=== PATIENT | male | born 1945 | race Caucasian/White ===

== ENCOUNTER → 2016-12-03 | Outpatient (CLI) | payer MEDICARE ==
--- NOTE | 2016-12-11 09:18 | SS ---
ADMIT: 12/03/2016 RM/LOC: [facility] MR#: [id number] [id number] JEEVANCHELSY [place] [address] Sleep Study SEX: M AGE: 71 : 1945 STUDY DATE: 12/03/2016 CLINICAL HISTORY: A 71-year-old male, body mass of 38.8, 68 inches tall, 255 pounds, known history of obstructive sleep apnea in the sleep lab for CPAP titration. TECHNICAL DESCRIPTION: CPAP titration performed on night of 12/03/2016, attended by a trained clinical laboratory technologist. TITRATION FINDINGS: TITRATION DESCRIPTION: The patient was titrated from 7 cm CPAP to 15 cm of CPAP. ResMed Mirage FX medium nasal mask was used. SLEEP: Total time bed is 425 minutes, total sleep time is 400.5 minutes, sleep efficiency 94.2%. 71.9% hours spent in stage II sleep, 19.8% hours spent in stage REM. BREATHING: Excellent resolution of obstructive sleep apnea was seen at CPAP 14 cm. The patient was seen in non-REM sleep in supine position. At 15 cm, there was emergence of central apneas, especially in REM sleep. At this time, 14 cm appears to be ideal for resolution of obstructive events. The patient was seen in non-REM sleep in supine position. REM supine sleep was not seen at this 14 cm ending pressure. OXYGEN SATURATION: Mean sleeping 92%. CARDIAC: Average heart rate is 71 beats per minute. MOVEMENTS/POSITION: During the study, the patient slept in supine lateral position with no significant leg movements. IMPRESSION: Recommend using CPAP at 14 cm with mask as mentioned above. Recommend losing weight, avoiding sedatives or alcohol. Refrain from driving if excessively sleepy. Clinical correlation needed. CPAP compliance followup is recommended. Clifton Dave MD/ marina MARTIN: 12/05/2016 15:02:08 JOB #: [id number] CC: Karan Howe MD, Attending Physician Karan Howe MD, Family Physician Karan Howe MD
== END | disposition home or self-care (01) ==
LOC: RESC 19:54
DX: G47.00 Insomnia, unspecified (principal); G47.30 Sleep apnea, unspecified; E66.9 Obesity, unspecified